=== PATIENT | female | born 1935 | race Caucasian/White ===

== ENCOUNTER 2016-09-11 18:18 | Emergency (ER) | payer BC ==
[~2016-09-11 18:18] MED LIST: ALBUTEROL5 INH; ALLEGRA180 PO; ASAB PO; ATROVENTUD INH; AYR NAS; BEN25 PEG; BEN25 PO; BISR PR; BUM2 PO; CALTRAT600 PO; CARD30 PO; CAT1 PO; CIP5 PO; CLARIT10 PEG; CLARIT10 PO; COLACEUDL PO; CORDARONE PEG; CORDARONE PO; COZ25 PEG; COZ25 PO; COZ50 PO; DEMA20 PEG; DEMA20 PO; DIOCTO50 MG/5 ML PO; DSS PEG; DUONEB INH; EFFEX37.5 PO; ELIQUIS 2.5 MG2.5 MG PEG; ELIQUIS 2.5 MG2.5 MG PO; FLONASE NAS; GGEXPUD PO; HCTZ25B PO; ICY HOT CREAM TOP; KCL20UDL PEG; KCL20UDL PO; L40 PO; LEVAQUIN5T PO; LEVAQUIN750 MG PO; LEVOTHYROXIN100 MCG PEG; LEVOTHYROXIN125 MCG PEG; LOP25 PEG; LOP25 PO; LOP50 PEG; LOP50 PO; MICRO-K10 MEQ PO; MIRALAXPKT PEG; MIRALAXPKT PO; MULTIVITAMI1 PO; NEXIUM40 MG PO; NOVOLOG SC; OMEGA PO; P10 PO; PACERONE200 MG PEG; PACERONE200 MG PO; PRAVACHOL40 MG PEG; PRAVACHOL40 MG PO; PROTONIX PEG; PROTONIX PO; PROVENTSOL INH; REFRESH OPH; RISAMINE OINTMENT; ROBAFEN DM1 ML OR; SYMBICORT 160/41 INH INH; SYN.05 PO; SYN.15 PO; SYN1 PO; SYN112 PO; SYN125 PEG; SYN125 PO; VIT D PO; VITAMIN B-122500 MCG SL; VITAMIN C PO; VITAMIN C100 M1 PO; VITC500 PO; ZAROX2.5B PEG; ZYRTEC ALLGY10 MG PO; [UNRECOGNIZED DRUG - OTHER] PO
[2016-09-11 19:09] LABS: BASOPHILS 0.1 %; BASOPHILS ABSOLUTE 0.01 10/3/uL (0.0-0.16); EOSINOPHILS 1.4 %; EOSINOPHILS ABSOLUTE 0.12 10/3/uL (0.0-0.53); HEMATOCRIT 40.1 % (36.0-48.0); HEMOGLOBIN 13.5 g/dL (12.0-16.0); IMMATURE GRANULOCYTES 0.2 %; IMMATURE GRANULOCYTES ABSOLUTE 0.02 10/3/uL (0.0-0.11); MANUAL DIFF NO %; MEAN CORPUS HGB CONC 33.7 g/dL (32.0-36.0); MEAN CORPUSCULAR HEMOGLOB 33.2 pg (26.0-34.0); MEAN CORPUSCULAR VOLUME 98.5 fL (80-100); MEAN PLATELET VOLUME 13.4 fL (9.2-13.0); MONOCYTES 10.7 %; MONOCYTES ABSOLUTE 0.92 10/3/uL (0.21-1.20); NEUTROPHILS 73.6 %; NEUTROPHILS ABSOLUTE 6.32 10/3/uL (2.02-8.40); PLATELET COUNT 147 10/3/uL (150-400); RBC DISTRIBUTION WIDTH 13.3 % (12.0-16.0); RED CELL COUNT 4.07 10/6/uL (4.0-5.6); WHITE BLOOD CELLS 8.6 10/3/uL (4.5-10.5)
[2016-09-11 19:18] LABS: INTERNATIONAL NORMAL RATI 1.2 UNITS (-); PARTIAL THROMBO TIME 35.3 SEC (22.5-37.2); PROTIME (NOT ORD) 14.6 SEC (12.0-14.5)
[2016-09-11] MEDS ORDERED: METOPROLOL 50MG PEG (19:25)
[2016-09-11] MEDS ORDERED: COZ25 PEG (19:25)
[2016-09-11] MEDS ORDERED: BUM2 PEG (19:25)
[2016-09-11] MEDS ORDERED: ELIQUIS 2.5 MG2.5 MG PEG (19:25)
[2016-09-11] MEDS ORDERED: SYN112 PEG (19:26)
[2016-09-11] MEDS ORDERED: KCL20UDL PEG (19:26)
[2016-09-11] MEDS ORDERED: PROTONIX PEG (19:26)
[2016-09-11] MEDS ORDERED: ALBUTEROL0.083 % INH (19:26)
[2016-09-11 19:27] LABS: BUN (BLOOD UREA NITROGEN) 37 MG/DL (6-23); CALCIUM, SERUM 9.3 MG/DL (8.5-10.4); CHLORIDE, SERUM 97 MMOL/L (96-112); CO2 (CARBON DIOXIDE) 37 MMOL/L (24-34); CREATININE 0.93 MG/DL (0.55-1.02); GFR AFRICAN AMERICAN 66 ML/MIN (>=60); GFR NON AFRICAN AMERICAN 57 ML/MIN (>=60); GLUCOSE, SERUM 177 MG/DL (60-99); POTASSIUM, SERUM 4.3 MMOL/L (3.5-5.3); SODIUM, SERUM 141 MMOL/L (135-148)
[2016-09-11] MEDS ORDERED: MIRALAX POWDER1 PKT PO (19:27)
[2016-09-11] MEDS ORDERED: FLONASE NAS (19:27)
[2016-09-11] MEDS ORDERED: ALLEGRA180 PEG (19:27)
[2016-09-11 19:28] LABS: CHEST PAIN PROFILE TAT 0 Hrs 23 Mins
[2016-09-11] MEDS ORDERED: ATROVENTUD INH (19:28)
[2016-09-11 19:48] LABS: ULTRASENSITIVE TSH 0.096 MCIU/ML (0.358-3.740)
[2017-01-27] MEDS ORDERED: BUM2 PEG (20:06)
[2017-01-27] MEDS ORDERED: BETAPACE80 PEG (20:07)
[2017-01-27] MEDS ORDERED: SYN88 PEG (20:07)
[2017-01-27] MEDS ORDERED: KCL20UDL PEG (20:07)
[2017-01-27] MEDS ORDERED: ELIQUIS 2.5 MG2.5 MG PEG (20:08)
[2017-01-27] MEDS ORDERED: ALLEGRA180 PEG (20:08)
[2017-01-27] MEDS ORDERED: MIRALAX POWDER1 PKT PEG (20:08)
[2017-01-27] MEDS ORDERED: COZ25 PEG (20:09)
[2017-01-27] MEDS ORDERED: ALBUTEROL0.083 % INH (20:09)
[2017-01-27] MEDS ORDERED: ATROVENTUD INH (20:09)
[2017-01-27] MEDS ORDERED: PROTONIX PEG (20:09)
[2017-01-27] MEDS ORDERED: SYSTANE OPH (20:10)
[2017-01-27] MEDS ORDERED: ACET500CAP PO (20:11)
[2017-02-02] MEDS ORDERED: FLORASTOR250 MG PO (12:40)
[2017-02-02] MEDS ORDERED: DURICEF PO (12:40)
== END 2016-09-11 20:50 | disposition home or self-care (01) ==
LOC: ER 18:18
PROVIDERS: Hospitalist
DX: I48.92 Unspecified atrial flutter (principal); J44.9 Chronic obstructive pulmonary disease, unspecified; I11.0 Hypertensive heart disease with heart failure; I50.9 Heart failure, unspecified; I25.10 Atherosclerotic heart disease of native coronary artery without angina pectoris; E03.9 Hypothyroidism, unspecified; I48.91 Unspecified atrial fibrillation; Z90.710 Acquired absence of both cervix and uterus; Z87.01 Personal history of pneumonia (recurrent); Z88.2 Allergy status to sulfonamides; Z88.8 Allergy status to other drugs, medicaments and biological substances; Z79.899 Other long term (current) drug therapy
CPT/HCPCS: 71010; 80048; 83735; 84443; 84484; 85025; 85610; 85730; 93005; 96374; 96375; 99285; J0153; J2405

== ENCOUNTER 2016-12-02 19:01 | Emergency (ER) | payer BC ==
[~2016-12-02 19:01] MED LIST changes: +ALBUTEROL0.083 % INH; +ALLEGRA180 PEG; +BUM2 PEG; +METOPROLOL 50MG PEG; +MIRALAX POWDER1 PKT PO; +SYN112 PEG
[2016-12-02 19:33] LABS: BASOPHILS 0.1 %; BASOPHILS ABSOLUTE 0.01 10/3/uL (0.0-0.16); EOSINOPHILS 2.4 %; EOSINOPHILS ABSOLUTE 0.19 10/3/uL (0.0-0.53); HEMATOCRIT 42.6 % (36.0-48.0); HEMOGLOBIN 14.1 g/dL (12.0-16.0); IMMATURE GRANULOCYTES 0.3 %; IMMATURE GRANULOCYTES ABSOLUTE 0.02 10/3/uL (0.0-0.11); LYMPHOCYTES 26.1 %; LYMPHOCYTES ABSOLUTE 2.06 10/3/uL (0.67-4.30); MEAN CORPUS HGB CONC 33.1 g/dL (32.0-36.0); MEAN CORPUSCULAR HEMOGLOB 32.6 pg (26.0-34.0); MEAN PLATELET VOLUME 13.7 fL (9.2-13.0); MONOCYTES 13.9 %; NEUTROPHILS 57.2 %; NEUTROPHILS ABSOLUTE 4.52 10/3/uL (2.02-8.40); PLATELET COUNT 156 10/3/uL (150-400); RBC DISTRIBUTION WIDTH 13.5 % (12.0-16.0); RED CELL COUNT 4.33 10/6/uL (4.0-5.6); WHITE BLOOD CELLS 7.9 10/3/uL (4.5-10.5)
[2016-12-02 19:34] LABS: MANUAL DIFF NO %; MEAN CORPUSCULAR VOLUME 98.4 fL (80-100)
[2016-12-02 19:41] LABS: INTERNATIONAL NORMAL RATI 1.1 UNITS (-); PARTIAL THROMBO TIME 37.2 SEC (22.5-37.2); PROTIME (NOT ORD) 14.3 SEC (12.0-14.5)
[2016-12-02 19:51] LABS: BUN (BLOOD UREA NITROGEN) 29 MG/DL (6-23); CALCIUM, SERUM 9.7 MG/DL (8.5-10.4); CHEST PAIN PROFILE TAT 0 Hrs 24 Mins; CHLORIDE, SERUM 100 MMOL/L (96-112); CO2 (CARBON DIOXIDE) 41 MMOL/L (24-34); CREATININE 0.84 MG/DL (0.55-1.02); GFR AFRICAN AMERICAN 75 ML/MIN (>=60); GFR NON AFRICAN AMERICAN 65 ML/MIN (>=60); GLUCOSE, SERUM 102 MG/DL (60-99); POTASSIUM, SERUM 4.4 MMOL/L (3.5-5.3); SODIUM, SERUM 142 MMOL/L (135-148); TROPONIN I <0.02 NG/ML (<0.05)
[2017-01-27] MEDS ORDERED: BUM2 PEG (20:06)
[2017-01-27] MEDS ORDERED: BETAPACE80 PEG (20:07)
[2017-01-27] MEDS ORDERED: SYN88 PEG (20:07)
[2017-01-27] MEDS ORDERED: KCL20UDL PEG (20:07)
[2017-01-27] MEDS ORDERED: MIRALAX POWDER1 PKT PEG (20:08)
[2017-01-27] MEDS ORDERED: ELIQUIS 2.5 MG2.5 MG PEG (20:08)
[2017-01-27] MEDS ORDERED: ALLEGRA180 PEG (20:08)
[2017-01-27] MEDS ORDERED: PROTONIX PEG (20:09)
[2017-01-27] MEDS ORDERED: ATROVENTUD INH (20:09)
[2017-01-27] MEDS ORDERED: ALBUTEROL0.083 % INH (20:09)
[2017-01-27] MEDS ORDERED: COZ25 PEG (20:09)
[2017-01-27] MEDS ORDERED: SYSTANE OPH (20:10)
[2017-01-27] MEDS ORDERED: ACET500CAP PO (20:11)
[2017-02-02] MEDS ORDERED: FLORASTOR250 MG PO (12:40)
[2017-02-02] MEDS ORDERED: DURICEF PO (12:40)
== END 2016-12-02 20:42 | disposition home or self-care (01) ==
LOC: ER 19:01
PROVIDERS: Specialist
DX: I48.91 Unspecified atrial fibrillation (principal); J44.9 Chronic obstructive pulmonary disease, unspecified; I25.2 Old myocardial infarction; I10 Essential (primary) hypertension; G47.30 Sleep apnea, unspecified; Z88.2 Allergy status to sulfonamides; Z88.8 Allergy status to other drugs, medicaments and biological substances; Z79.899 Other long term (current) drug therapy
CPT/HCPCS: 71010; 80048; 83735; 84484; 85025; 85610; 85730; 93005; 96374; 99285

== ENCOUNTER 2016-12-25 11:35 | Emergency (ER) | payer BC ==
[2016-12-25 10:56] LABS: BASOPHILS 0.1 %; BASOPHILS ABSOLUTE 0.01 10/3/uL (0.0-0.16); EOSINOPHILS 1.6 %; EOSINOPHILS ABSOLUTE 0.14 10/3/uL (0.0-0.53); ER CBC TAT 0 Hrs 03 Mins; HEMATOCRIT 44.3 % (36.0-48.0); HEMOGLOBIN 14.6 g/dL (12.0-16.0); IMMATURE GRANULOCYTES 0.2 %; IMMATURE GRANULOCYTES ABSOLUTE 0.02 10/3/uL (0.0-0.11); LYMPHOCYTES 17.9 %; MEAN CORPUSCULAR HEMOGLOB 32.4 pg (26.0-34.0); MEAN CORPUSCULAR VOLUME 98.4 fL (80-100); MEAN PLATELET VOLUME 13.7 fL (9.2-13.0); MONOCYTES 13.4 %; NEUTROPHILS 66.8 %; NEUTROPHILS ABSOLUTE 5.97 10/3/uL (2.02-8.40); PLATELET COUNT 147 10/3/uL (150-400); RBC DISTRIBUTION WIDTH 13.5 % (12.0-16.0); WHITE BLOOD CELLS 8.9 10/3/uL (4.5-10.5)
[2016-12-25 10:57] LABS: MANUAL DIFF NO %
[2016-12-25 11:03] LABS: INTERNATIONAL NORMAL RATI 1.2 UNITS (-)
[2016-12-25 11:04] LABS: PARTIAL THROMBO TIME 35.6 SEC (22.5-37.2)
[2016-12-25 11:21] LABS: BUN (BLOOD UREA NITROGEN) 31 MG/DL (6-23); CALCIUM, SERUM 10.1 MG/DL (8.5-10.4); CHEST PAIN PROFILE TAT 0 Hrs 28 Mins; CHLORIDE, SERUM 97 MMOL/L (96-112); CO2 (CARBON DIOXIDE) 39 MMOL/L (24-34); CREATININE 0.96 MG/DL (0.55-1.02); GFR AFRICAN AMERICAN 64 ML/MIN (>=60); GFR NON AFRICAN AMERICAN 55 ML/MIN (>=60); POTASSIUM, SERUM 4.1 MMOL/L (3.5-5.3); SODIUM, SERUM 140 MMOL/L (135-148); TROPONIN I <0.02 NG/ML (<0.05)
[2016-12-25 11:22] LABS: GLUCOSE, SERUM 125 MG/DL (60-99)
[2017-01-27] MEDS ORDERED: BUM2 PEG (20:06)
[2017-01-27] MEDS ORDERED: SYN88 PEG (20:07)
[2017-01-27] MEDS ORDERED: BETAPACE80 PEG (20:07)
[2017-01-27] MEDS ORDERED: KCL20UDL PEG (20:07)
[2017-01-27] MEDS ORDERED: ELIQUIS 2.5 MG2.5 MG PEG (20:08)
[2017-01-27] MEDS ORDERED: ALLEGRA180 PEG (20:08)
[2017-01-27] MEDS ORDERED: MIRALAX POWDER1 PKT PEG (20:08)
[2017-01-27] MEDS ORDERED: ALBUTEROL0.083 % INH (20:09)
[2017-01-27] MEDS ORDERED: COZ25 PEG (20:09)
[2017-01-27] MEDS ORDERED: PROTONIX PEG (20:09)
[2017-01-27] MEDS ORDERED: ATROVENTUD INH (20:09)
[2017-01-27] MEDS ORDERED: SYSTANE OPH (20:10)
[2017-01-27] MEDS ORDERED: ACET500CAP PO (20:11)
[2017-02-02] MEDS ORDERED: FLORASTOR250 MG PO (12:40)
[2017-02-02] MEDS ORDERED: DURICEF PO (12:40)
== END 2016-12-25 13:25 | disposition home or self-care (01) ==
LOC: ER 11:35
PROVIDERS: Emergency Medicine
DX: I48.91 Unspecified atrial fibrillation (principal); Z88.2 Allergy status to sulfonamides; Z88.8 Allergy status to other drugs, medicaments and biological substances; Z79.899 Other long term (current) drug therapy
CPT/HCPCS: 71010; 80048; 83735; 83880; 84443; 84484; 85025; 85610; 85730; 93005; 96374; 99284; A9270-GY